=== PATIENT | female | born 1970 | race Caucasian/White ===

== ENCOUNTER 2016-12-11 16:54 | Emergency (ER) | payer BC ==
[2016-12-11] MEDS ORDERED: EPINEPHrine 1 mg/ml MDV (1ml Charge) ONE (17:23)
[2016-12-11] MEDS ORDERED: diphenhydrAMINE HCl 50 MG/ML 1 ML VIAL ONE (17:23)
[2016-12-11] MEDS ORDERED: methylPREDNISolone Sod Succ/PF 125 MG/2 ML VIAL ONE (17:23)
== END 2016-12-11 21:00 | disposition home or self-care (01) ==
LOC: BURERS 16:54
DX: T78.2XXA Anaphylactic shock, unspecified, initial encounter (principal); I10 Essential (primary) hypertension; M06.9 Rheumatoid arthritis, unspecified; F32.9 Major depressive disorder, single episode, unspecified; F17.210 Nicotine dependence, cigarettes, uncomplicated
CPT/HCPCS: 96372; 96374; 96375; J0171; J1200; J2930

== ENCOUNTER 2017-10-06 10:59 | Emergency (ER) | payer BC ==
[2017-10-06 12:10] LABS: #Basophils 0.1 thou/uL (0.0-0.2); #Eosinphils 0.1 thou/uL (0.0-0.7); #Lymphocytes 2.5 thou/uL (1.20-3.40); #Monocytes 0.7 thou/uL (0.11-0.59); %Basophils 0.8 % (0.0-1.0); %Eosinophils 0.8 % (0.0-10.0); %Lymphocytes 34.1 % (21.0-51.0); %Monocytes 9.8 % (0.0-10.0); %Neutrophils 54.6 % (42.0-75.0); Hemoglobin 16.4 g/dL (12.0-16.0); Mean Corpuscular HGB CONC 35.2 g/dL (32.0-36.0); Mean Corpuscular Hemoglobin 32.2 pg (27.0-31.0); Mean Corpuscular Volume 91.4 fl (81.0-99.0); Mean Platelet Volume 7.5 fL (7.4-10.4); Platelet Count 159 thou/uL (130-400); RBC Distribution Width 12.1 % (11.5-14.5); White Blood Cell (WBC) Count 7.3 thou/uL (4.8-10.8)
[2017-10-06 12:12] LABS: Bilirubin Negative (Negative); Blood, Urine Negative (Negative); Clarity Clear (Clear); Glucose, Urine (Dipstick) Negative (Negative); Leukocyte Large (Negative); Nitrite Negative (Negative); Protein, Urine (Dipstick) Negative (Neg-Trace); Urobilinogen 0.2 mg/dL (0.2-1.0); pH, Urine 5.5 (5.0-9.0)
[2017-10-06 12:13] LABS: Specific Gravity, Urine 1.003 (1.005-1.030)
[2017-10-06] MEDS ORDERED: Ondansetron ODT 4 MG TAB ONE (12:15)
[2017-10-06 12:17] LABS: Bacteria/HPF 1+ HPF (None Seen); RBC/HPF None Seen HPF (0-3)
[2017-10-06 12:25] LABS: ALT (SGPT) 15 U/L (8-55); AST (SGOT) 19 U/L (5-34); Albumin 4.2 g/dL (3.5-5.0); Alkaline Phosphatase 63 U/L (40-150); Anion Gap 12 mmol/L (10-20); BUN (Urea Nitrogen) 7 mg/dL (7.0-18.7); Bilirubin, Total 0.4 mg/dL (0.2-1.2); Calc. Creatinine Clearance 0 mL/min (70-130); Calcium 9.3 mg/dL (7.8-10.44); Carbon Dioxide 25 mmol/L (22-29); Chloride 107 mmol/L (98-107); Estimated GFR-MDRD Greater than 90; Globulin 2.9 g/dL (2.4-3.5); Glucose 91 mg/dL (70-105); Potassium 3.9 mmol/L (3.5-5.1); Protein, Total 7.1 g/dL (6.0-8.3); Sodium 140 mmol/L (136-145)
[2017-10-06 12:27] LABS: Troponin I Less than 0.010 ng/mL (< 0.028)
[2017-10-06] MEDS ORDERED: Sulfameth/Trimethoprim DS 800-160mg TAB ONE (13:41)
== END 2017-10-06 13:53 | disposition home or self-care (01) ==
LOC: BURERS 10:59
DX: I95.9 Hypotension, unspecified (principal); N30.00 Acute cystitis without hematuria; M06.9 Rheumatoid arthritis, unspecified; F41.9 Anxiety disorder, unspecified; F31.9 Bipolar disorder, unspecified; F17.210 Nicotine dependence, cigarettes, uncomplicated
CPT/HCPCS: 36415; 80053; 81003; 81015; 82553; 84484; 85025; 87086; 93005; 94760; 96360; Q0162

== ENCOUNTER 2018-04-10 15:02 | Emergency (ER) | payer BC ==
--- NOTE | 2018-04-10 15:53 | RAD ---
PORTABLE CHEST 04/10/18 An AP portable film at 1459 is compared with a 01/23/09 study. The heart is normal in size and the lungs are clear. No infiltrate, effusion, or sign of atelectasis was seen. No opaque foreign bodies were evident. The trachea is midline. IMPRESSION: No acute thoracic finding. POS: HOME
--- NOTE | 2018-04-10 15:55 | RAD ---
SOFT TISSUE NECK: 04/10/18 No opaque foreign body was evident. The prevertebral soft tissues are normal in thickness as is the e piglottis. No bony abnormalities were seen. the apparent deviation of the trachea to the left is caus ed by the patient being turned slightly on the AP view. Incidental finding of slight narrowing of th e C5-C6 disc space. IMPRESSION: No significant findings. POS: HOME
== END 2018-04-10 15:42 | disposition left against medical advice (07) ==
LOC: BURERS 15:02
DX: R13.10 Dysphagia, unspecified (principal); M06.9 Rheumatoid arthritis, unspecified; I10 Essential (primary) hypertension; F31.9 Bipolar disorder, unspecified; F41.9 Anxiety disorder, unspecified; F17.210 Nicotine dependence, cigarettes, uncomplicated; Z79.899 Other long term (current) drug therapy
CPT/HCPCS: 70360; 71045